=== PATIENT | male | born 1940 | race Caucasian/White ===

== ENCOUNTER 2021-11-07 10:11 | Inpatient (IN) | payer MEDICARE, OTHER, MEDICAID ==
[~2021-11-07] VITALS: Ht 182.9 cm; Wt 109.6 kg
[~2021-11-07 10:11] MED LIST: APIX5TAB OR; ATOR20TA PO; CARV25TA55 PO; CHOL20004 PO; DRON400T PO; DULO1CAP6 PO; FLUT1AER3 IN; FLUT500M2 INH; FURO40TA4 PO; GLYB2.5T8 PO; PANT1INJ3 PO; POTA1TAB61 PO; PRE1T PO; ZOLP10TA6 PO
[2021-11-07 11:32] LABS: Basophils # (auto) 0 10 ^3/uL (0-0.2); Basophils % (auto) 0.6 % (0.0-2.0); Eosinophils # (auto) 0.1 10 ^3/uL (0-0.8); Eosinophils % (auto) 1.7 % (0.0-7.0); Hematocrit 29.7 % (41.0-53.0); Hemoglobin 9.5 g/dL (13.5-17.5); Lymphocytes # (auto) 1.5 10 ^3/uL (0.4-5.4); Lymphocytes % (auto) 17.1 % (10.0-50.0); Mean Corpuscular Hemoglobin 27.7 pg (28.0-32.0); Mean Corpuscular Hgb Conc. 31.9 g/dL (32.0-36.0); Mean Corpuscular Volume 86.9 fL (80.0-100.0); Monocytes # (auto) 0.7 10 ^3/uL (0-1.3); Monocytes % (auto) 8.6 % (0.0-12.0); Neutrophils # (auto) 6.2 10 ^3/uL (1.6-8.6); Nucleated Red Blood Cells % 0.1 %; Red Blood Cells 3.42 10^6/uL (4.5-5.90); White Blood Cell 8.6 10^3/uL (4.4-10.8)
[2021-11-07 12:03] LABS: Albumin 3.2 g/dL (3.4-5.0); Calcium 8.7 mg/dL (8.5-10.1); Potassium 4.5 mmol/L (3.5-5.1)
[2021-11-07 12:06] LABS: BUN/Creatinine Ratio 23.4; Bilirubin, Total 0.3 mg/dL (0.2-1.0); Total Protein 6.4 g/dL (6.4-8.2)
[2021-11-07 12:37] LABS: Urine Bacteria FEW /hpf (None Seen); Urine Blood Negative /uL (Negative); Urine Hyaline Cast FEW /lpf (0 - 2); Urine Specific Gravity 1.016 (1.001-1.035); Urine WBC 5 /hpf (0 - 3)
[2021-11-07] MEDS ORDERED: NITR-87 PO (13:56)
[2021-11-07] MEDS ORDERED: DOCUSATE SOD 100 MG CAP PO PRN (14:45)
[2021-11-07] MEDS ORDERED: MORPHINE SULFATE INJ 2 MG/ml SYRG IV PRN (14:45)
[2021-11-07] MEDS ORDERED: NITROGLYCERIN 0.4 MG SL TAB SL PRN (14:45)
[2021-11-07] MEDS ORDERED: ONDANSETRON HCL 4 MG/2 ML VIAL IV PRN (14:45)
[2021-11-07] MEDS ORDERED: cefTRIAXone 1GM/50ML D5W 50 ML IV ONE (19:45)
[2021-11-07] MEDS ORDERED: SODIUM CHLORIDE 0.9% 1,000 ML IV SCH (19:45)
[2021-11-07] MEDS: ACETAMINOPHEN 325 MG TAB PO PRN (20:19)
[2021-11-07] MEDS ORDERED: DEXTROSE (50%) 50ML SYRG IV PRN (21:45)
[2021-11-07] MEDS: APIXABAN 5 MG TAB PO SCH (22:00)
[2021-11-07 22:54] VITALS: BP 172/79
[2021-11-07] MEDS: CARVEDILOL 12.5 MG TAB PO SCH (23:05)
[2021-11-07] MEDS: ACCU-CHEK COMFORT CURVE STRIP VI SCH (23:06)
[2021-11-07] MEDS: InsuLIN REG 1unit/0.01ml Soln (100units/ml) SC SCH (23:12)
[2021-11-08] MEDS ORDERED: ZOLPIDEM TARTRATE 5 MG TAB PO ONE
[2021-11-08 05:00] VITALS: BP 164/86
[2021-11-08] MEDS: InsuLIN REG 1unit/0.01ml Soln (100units/ml) SC SCH ×4 (06:13→21:43)
[2021-11-08] MEDS: ACCU-CHEK COMFORT CURVE STRIP VI SCH ×4 (06:13→21:42)
[2021-11-08 09:00] VITALS: BP 176/79
[2021-11-08] MEDS: cefTRIAXone 1GM/50ML D5W 50 ML IV SCH (09:21)
[2021-11-08] MEDS: APIXABAN 5 MG TAB PO SCH ×2 (10:00→21:55)
[2021-11-08] MEDS: DULoxetine HCL 30 MG CAP PO SCH (10:23)
[2021-11-08] MEDS: CARVEDILOL 12.5 MG TAB PO SCH ×2 (10:24→21:41)
[2021-11-08 11:55] LABS: BUN/Creatinine Ratio 23.2; Calcium 8.3 mg/dL (8.5-10.1); Potassium 4.7 mmol/L (3.5-5.1)
[2021-11-08] MEDS ORDERED: PANTOPRAZOLE 40 MG TAB PO ONE (12:30)
[2021-11-08 13:00] VITALS: BP 127/79
[2021-11-08] MEDS ORDERED: OPTISON 3ml Vial for INJ IV ONE (14:22)
[2021-11-08 16:59] VITALS: BP 162/79
[2021-11-08] MEDS: hydrALAZINE HCL 20 MG/ML VL IV PRN (19:16)
[2021-11-08] MEDS: ACETAMINOPHEN 325 MG TAB PO PRN (19:55)
[2021-11-08] MEDS: ATORVASTATIN 20 MG TAB PO SCH (21:42)
[2021-11-08 22:00] VITALS: BP 149/59
[2021-11-09] MEDS: ZOLPIDEM TARTRATE 5 MG TAB PO PRN ×2 (01:20→23:20)
[2021-11-09 04:52] VITALS: BP 163/74
[2021-11-09] MEDS: InsuLIN REG 1unit/0.01ml Soln (100units/ml) SC SCH ×4 (05:59→22:16)
[2021-11-09] MEDS: ACCU-CHEK COMFORT CURVE STRIP VI SCH ×4 (05:59→22:14)
[2021-11-09] MEDS: hydrALAZINE HCL 20 MG/ML VL IV PRN (06:00)
[2021-11-09 07:34] LABS: Basophils # (auto) 0.1 10 ^3/uL (0-0.2); Basophils % (auto) 0.5 % (0.0-2.0); Eosinophils # (auto) 0.2 10 ^3/uL (0-0.8); Eosinophils % (auto) 1.8 % (0.0-7.0); Hematocrit 28.2 % (41.0-53.0); Hemoglobin 9.1 g/dL (13.5-17.5); Lymphocytes # (auto) 1.2 10 ^3/uL (0.4-5.4); Lymphocytes % (auto) 12.4 % (10.0-50.0); Mean Corpuscular Hemoglobin 27.8 pg (28.0-32.0); Mean Corpuscular Hgb Conc. 32.1 g/dL (32.0-36.0); Mean Corpuscular Volume 86.5 fL (80.0-100.0); Monocytes # (auto) 1.2 10 ^3/uL (0-1.3); Monocytes % (auto) 11.8 % (0.0-12.0); Neutrophils # (auto) 7.3 10 ^3/uL (1.6-8.6); Neutrophils % (auto) 73.5 % (37.0-80.0); Red Blood Cells 3.26 10^6/uL (4.5-5.90); Red Cell Distribution Width 15.8 % (11.8-14.3); White Blood Cell 9.9 10^3/uL (4.4-10.8)
[2021-11-09 07:46] LABS: % Iron Saturation 17.9 % (20-55)
[2021-11-09 07:47] LABS: BUN/Creatinine Ratio 22.6; Calcium 8.6 mg/dL (8.5-10.1); Potassium 4.4 mmol/L (3.5-5.1)
[2021-11-09 08:37] VITALS: BP 142/40
[2021-11-09] MEDS: cefTRIAXone 1GM/50ML D5W 50 ML IV SCH (08:59)
[2021-11-09] MEDS: APIXABAN 5 MG TAB PO SCH ×2 (10:00→22:00)
[2021-11-09] MEDS: DULoxetine HCL 30 MG CAP PO SCH (11:15)
[2021-11-09] MEDS: SPIRONOLACTONE 25 MG TAB PO SCH (11:15)
[2021-11-09] MEDS: CARVEDILOL 12.5 MG TAB PO SCH ×2 (11:16→22:14)
[2021-11-09] MEDS: PANTOPRAZOLE 40 MG TAB PO SCH (11:17)
[2021-11-09] MEDS: amLODIPine BESYLATE 5 MG TAB PO SCH (11:18)
[2021-11-09 12:27] VITALS: BP 156/85
[2021-11-09 17:00] VITALS: BP 116/47
[2021-11-09 22:00] VITALS: BP 99/69
[2021-11-09] MEDS: ATORVASTATIN 20 MG TAB PO SCH (22:14)
[2021-11-10 05:00] VITALS: BP 139/62
[2021-11-10 06:01] LABS: Calcium 8.5 mg/dL (8.5-10.1); Potassium 4.6 mmol/L (3.5-5.1)
[2021-11-10 06:03] LABS: BUN/Creatinine Ratio 21.6
[2021-11-10] MEDS: InsuLIN REG 1unit/0.01ml Soln (100units/ml) SC SCH ×2 (07:00→11:30)
[2021-11-10] MEDS: ACCU-CHEK COMFORT CURVE STRIP VI SCH ×2 (07:14→11:30)
[2021-11-10 09:00] VITALS: BP 117/54
[2021-11-10] MEDS: cefTRIAXone 1GM/50ML D5W 50 ML IV SCH (09:00)
[2021-11-10] MEDS: APIXABAN 5 MG TAB PO SCH (10:00)
[2021-11-10] MEDS: amLODIPine BESYLATE 5 MG TAB PO SCH (11:26)
[2021-11-10] MEDS: CARVEDILOL 12.5 MG TAB PO SCH (11:26)
[2021-11-10] MEDS: PANTOPRAZOLE 40 MG TAB PO SCH (11:26)
[2021-11-10] MEDS: SPIRONOLACTONE 25 MG TAB PO SCH (11:27)
[2021-11-10] MEDS: DULoxetine HCL 30 MG CAP PO SCH (11:37)
[2021-11-10 12:55] VITALS: BP 123/59
[2021-11-10 15:13] VITALS: BP 117/54
[2021-11-10 16:44] VITALS: BP 125/55
[2021-11-10] MEDS ORDERED: CARVEDILOL 12.5 MG TAB PO SCH (22:00)
[2021-11-11] MEDS ORDERED: amLODIPine BESYLATE 5 MG TAB PO SCH (10:00)
== END 2021-11-10 17:07 | disposition home or self-care (01) | DRG 315 ==
LOC: EDBD 10:11 → EDUNIT# 10:11 → ER 10:23 → TELE 14:41 → TELE-WESTW 21:54
PROVIDERS: ADMIT Nurse Practitioner Family; ATTEND Internal Medicine
DX: I95.9 Hypotension, unspecified (principal); I13.0 Hypertensive heart and chronic kidney disease with heart failure and stage 1 through stage 4 chronic kidney disease, or unspecified chronic kidney disease; N39.0 Urinary tract infection, site not specified; N17.9 Acute kidney failure, unspecified; I50.42 Chronic combined systolic (congestive) and diastolic (congestive) heart failure; J96.10 Chronic respiratory failure, unspecified whether with hypoxia or hypercapnia; D64.9 Anemia, unspecified; E11.22 Type 2 diabetes mellitus with diabetic chronic kidney disease; E27.9 Disorder of adrenal gland, unspecified; E66.9 Obesity, unspecified; Z68.32 Body mass index [BMI] 32.0-32.9, adult; H91.90 Unspecified hearing loss, unspecified ear; E86.0 Dehydration; E78.5 Hyperlipidemia, unspecified; M54.50 Low back pain, unspecified; Z20.822 Contact with and (suspected) exposure to COVID-19; N18.32 Chronic kidney disease, stage 3b; Z96.659 Presence of unspecified artificial knee joint; J44.9 Chronic obstructive pulmonary disease, unspecified; W18.39XA Other fall on same level, initial encounter; I48.91 Unspecified atrial fibrillation; N28.1 Cyst of kidney, acquired; S40.212A Abrasion of left shoulder, initial encounter; S40.812A Abrasion of left upper arm, initial encounter; Z87.891 Personal history of nicotine dependence; Z95.0 Presence of cardiac pacemaker; Z79.899 Other long term (current) drug therapy; Y93.89 Activity, other specified; Y92.89 Other specified places as the place of occurrence of the external cause; Y99.8 Other external cause status
CPT/HCPCS: 36415; 74176; 76775; 80048; 80053; 81001; 82088; 82270; 82533; 82962; 83036; 83540; 83550; 83835; 83880; 84244; 84443; 84484; 85025; 93005; 93306; 96365; 97116; 97163; 97530; G0378; J0696; J1815; Q9956